=== PATIENT | male | born 1990 | race African-American/Black ===

== ENCOUNTER 2019-02-14 08:00 | Emergency (ER) | payer MEDICAID ==
[~2019-02-14] VITALS: Ht 172.7 cm; Wt 64.0 kg
[2019-02-14] MEDS ORDERED: LEVE500T53 PO (08:07)
[2019-02-14 10:08] VITALS: BP 118/86
== END 2019-02-14 10:10 | disposition home or self-care (01) ==
LOC: EMS 08:02
DX: R10.9 Unspecified abdominal pain (principal); F12.90 Cannabis use, unspecified, uncomplicated; Z98.890 Other specified postprocedural states; Z93.3 Colostomy status

== ENCOUNTER 2019-02-15 19:12 | Emergency (ER) | payer MEDICAID ==
[~2019-02-15] VITALS: Ht 172.7 cm; Wt 63.2 kg
[~2019-02-15 19:12] MED LIST: LEVE500T53 PO
[2019-02-15 20:42] VITALS: BP 130/88
== END 2019-02-15 21:45 | disposition home or self-care (01) ==
LOC: EMS 19:13
DX: R07.89 Other chest pain (principal); G40.909 Epilepsy, unspecified, not intractable, without status epilepticus; F12.90 Cannabis use, unspecified, uncomplicated; F17.210 Nicotine dependence, cigarettes, uncomplicated; Z98.890 Other specified postprocedural states; Z93.3 Colostomy status
CPT/HCPCS: 93005

== ENCOUNTER 2019-02-27 09:09 | Emergency (ER) | payer MEDICAID ==
[~2019-02-27] VITALS: Ht 172.7 cm; Wt 59.1 kg
[2019-02-27] MEDS ORDERED: LevETIRAcetam 500 MG TABLET PO ONE (10:15)
[2019-02-27 10:55] VITALS: BP 128/71
== END 2019-02-27 10:56 | disposition home or self-care (01) ==
LOC: EMS 09:09
DX: G40.909 Epilepsy, unspecified, not intractable, without status epilepticus (principal); F17.210 Nicotine dependence, cigarettes, uncomplicated; F12.90 Cannabis use, unspecified, uncomplicated; Z59.0 Homelessness
CPT/HCPCS: 99406